=== PATIENT | male | born 1940 | race Caucasian/White ===

== ENCOUNTER 2016-06-04 10:22 | Emergency (ER) | payer OTHER, MEDICARE ==
[~2016-06-04] VITALS: Ht 172.7 cm; Wt 83.9 kg
[2016-06-04 10:29] VITALS: BP 121/68
--- NOTE | 2016-06-04 11:41 | NUR ---
PT TO BED 3
--- NOTE | 2016-06-04 11:45 | NUR ---
75M BIB SELF C/O ABDOMINAL PAIN X 2 WEEKS & COUGH X 3 WEEKS; DENIES V/D; SKIN IS PINK/WARM/DRY; AAOX4 WITH EVEN AND STEADY GAIT; LUNGS CLEAR BL; HR EVEN AND REGULAR; PT DENIES ANY FEVER, CP, SOB, OR COUGH AT THIS TIME; PATIENT STATES PAIN OF 6/10 AT THIS TIME; VSS; PATIENT POSITIONED FOR COMFORT; HOB ELEVATED; BEDRAILS UP X2; BED DOWN. ER MD MADE AWARE OF PT STATUS.
--- NOTE | 2016-06-04 12:04 | NUR ---
AAO PT BEING ASSESS BY DR BURT AT BEDSIDE
[2016-06-04] MEDS ORDERED: ONDANSETRON 4 MG/2 ML VIAL IVP ONE (12:05)
[2016-06-04] MEDS ORDERED: FAMOTIDINE 20 MG/2 ML VIAL IVP ONE (12:05)
[2016-06-04] MEDS ORDERED: NACL 0.9% 1,000 ML IV SCH (12:05)
--- NOTE | 2016-06-04 12:35 | NUR ---
PT TAKEN TO CT BY ROSCOE CHAVEZ VIA WHEEL CHAIR
[2016-06-04 14:25] VITALS: BP 132/72
--- NOTE | 2016-06-04 14:25 | NUR ---
Patient discharged with v/s stable. Written and verbal after care instructions given and explained. Patient alert, oriented and verbalized understanding of instructions. Ambulatory with steady gait. All questions addressed prior to discharge. ID band removed. Patient advised to follow up with PMD. Rx of given. PRANITIDINE, TYLENOL atient educated on indication of medication including possible reaction and side effects. Opportunity to ask questions provided and answered.
== END 2016-06-04 14:25 | disposition home or self-care (01) ==
LOC: MED 10:22
DX: R10.13 Epigastric pain (principal); K40.90 Unilateral inguinal hernia, without obstruction or gangrene, not specified as recurrent; K57.90 Diverticulosis of intestine, part unspecified, without perforation or abscess without bleeding; R19.7 Diarrhea, unspecified; R11.2 Nausea with vomiting, unspecified; E11.9 Type 2 diabetes mellitus without complications; I10 Essential (primary) hypertension
CPT/HCPCS: 36415; 74176; 80053; 81001; 82150; 83690; 85025; 87086; 96374; 96375; 99285; J2405; J3490; J7030

== ENCOUNTER 2016-06-22 22:24 | Emergency (ER) | payer OTHER, MEDICARE ==
[~2016-06-22] VITALS: Ht 172.7 cm; Wt 83.9 kg
[2016-06-22 22:35] VITALS: BP 159/115
--- NOTE | 2016-06-22 23:00 | NUR ---
PATIENT PRESENTS TO ED WITH ABD PAIN . PT STATES N/V/ AND NO DIARRHEA. SKIN IS PINK/WARM/DRY; AAOX4 WITH EVEN AND STEADY GAIT; LUNGS CLEAR BL; HR EVEN AND REGULAR; PT DENIES ANY FEVER, CP, SOB, OR COUGH AT THIS TIME; PATIENT STATES PAIN OF 8/10 AT THIS TIME; VSS; PATIENT POSITIONED FOR COMFORT; HOB ELEVATED; BEDRAILS UP X2; BED DOWN. ER MD MADE AWARE OF PT STATUS.
--- NOTE | 2016-06-22 23:04 | NUR ---
TO ER BED 8
[2016-06-22] MEDS ORDERED: PANTOPRAZOLE 40 MG INJ VIAL IVP ONE (23:25)
[2016-06-22] MEDS ORDERED: KETOROLAC 30 MG/ML VIAL IVP ONE (23:25)
[2016-06-22] MEDS ORDERED: ONDANSETRON 4 MG/2 ML VIAL IVP ONE (23:25)
[2016-06-22] MEDS ORDERED: NACL 0.9% 500 ML IV ONE (23:25)
--- NOTE | 2016-06-22 23:40 | NUR ---
LABS DONE AT BEDSIDE
--- NOTE | 2016-06-22 23:40 | NUR ---
PT TAKEN TO CT
[2016-06-23] MEDS ORDERED: LIDOCAINE VISCOUS 2% 20 ML UDC PO ONE (01:10)
[2016-06-23 01:44] VITALS: BP 162/94
--- NOTE | 2016-06-23 01:44 | NUR ---
Patient discharged with v/s stable. Written and verbal after care instructions given and explained. Patient alert, oriented and verbalized understanding of instructions. Ambulatory with steady gait. All questions addressed prior to discharge. ID band removed. Patient advised to follow up with PMD. Rx of MIRALAX, PROTONIX, MAGNESIUM CITRATE given. Patient educated on indication of medication including possible reaction and side effects. Opportunity to ask questions provided and answered.
== END 2016-06-23 01:44 | disposition home or self-care (01) ==
LOC: MED 22:24
DX: K59.00 Constipation, unspecified (principal); E11.9 Type 2 diabetes mellitus without complications; F41.9 Anxiety disorder, unspecified; I10 Essential (primary) hypertension
CPT/HCPCS: 36415; 74176; 80053; 85025; 85610; 85730; 96361; 96374; 96375; 99285; C9113; J1885; J2405; J7030

== ENCOUNTER 2016-07-31 16:10 | Emergency (ER) | payer MEDICARE, OTHER ==
--- NOTE | 2016-07-31 16:20 | NUR ---
CALLED PT FOR TRIAGE ASSESSMENT, NO ANSWER.
--- NOTE | 2016-07-31 16:37 | NUR ---
PATIENT CALLED FROM LOBBY NO ANSWER FOR TRIAGE.
--- NOTE | 2016-07-31 17:34 | NUR ---
PATIENT LWBS NO ANSWER.
== END 2016-07-31 17:35 | disposition left against medical advice (07) ==
LOC: MED 16:10
DX: R10.9 Unspecified abdominal pain (principal); Z53.21 Procedure and treatment not carried out due to patient leaving prior to being seen by health care provider

== ENCOUNTER 2016-08-22 16:35 | Emergency (ER) | payer MEDICARE ==
[~2016-08-22] VITALS: Ht 172.7 cm; Wt 81.6 kg
[2016-08-22 16:37] VITALS: BP 148/77
[2016-08-22] MEDS ORDERED: NACL 0.9% 1,000 ML IV SCH (17:34)
[2016-08-22] MEDS ORDERED: FAMOTIDINE 20 MG/2 ML VIAL IVP ONE (17:35)
[2016-08-22] MEDS ORDERED: ONDANSETRON 4 MG/2 ML VIAL IVP ONE (17:35)
[2016-08-22] MEDS ORDERED: LIDOCAINE VISCOUS 2% 20 ML UDC PO ONE (17:45)
[2016-08-22] MEDS ORDERED: ALUMINUM HYD/MAG/SIMETHICONE 30 ML UDC PO ONE (17:45)
[2016-08-22] MEDS ORDERED: BELLADONNA/PHENOBARBITAL 1 TAB PO ONE (17:45)
[2016-08-22] MEDS ORDERED: DICYCLOMINE HCL LIQUID 20 MG, ALUMINUM HYD/MAG/SIMETHICONE 30 ML, LIDOCAINE VISCOUS 2% ... PO ONE (17:50)
--- NOTE | 2016-08-22 17:50 | NUR ---
PT AMBULATED TO ER BED #4.
--- NOTE | 2016-08-22 17:52 | NUR ---
75/M PRESENT TO ER C/O ABDOMINAL PAIN x 2 WEEKS. PAIN 10/10 ACHING NON RADIATING. PT HAS NAUSEA BUT DENIES V/D. AAOx 4, PERRLA, BREATHING EVEN AND UNLABORED.
--- NOTE | 2016-08-22 18:10 | NUR ---
Patient being evaluated by physician at bedside.
--- NOTE | 2016-08-22 19:08 | NUR ---
Patient discharged with v/s stable. Written and verbal after care instructions given and explained. Patient alert, oriented and verbalized understanding of instructions. Ambulatory with steady gait. All questions addressed prior to discharge. ID band removed. Patient advised to follow up with PMD. Rx of guaitussin ac 100mg/10mg-5ml and elixir 5ml given. Patient educated on indication of medication including possible reaction and side effects. Opportunity to ask questions provided and answered.
[2016-08-22 19:12] VITALS: BP 141/80
== END 2016-08-22 19:12 | disposition home or self-care (01) ==
LOC: MED 16:37
DX: K21.9 Gastro-esophageal reflux disease without esophagitis (principal); E11.9 Type 2 diabetes mellitus without complications; F41.9 Anxiety disorder, unspecified; I10 Essential (primary) hypertension
CPT/HCPCS: 36415; 71010; 80053; 82150; 82553; 83690; 83880; 84484; 85025; 85610; 85730; 93005; 96361; 96374; 96375; 99285; J2405; J3490; Q0092

== ENCOUNTER 2016-10-14 06:25 | Emergency (ER) | payer MEDICARE ==
[~2016-10-14] VITALS: Ht 172.7 cm; Wt 77.1 kg
[2016-10-14 06:34] VITALS: BP 157/92
--- NOTE | 2016-10-14 07:40 | NUR ---
Pt taken to bed 6.
--- NOTE | 2016-10-14 07:50 | NUR ---
76/M c/o abdominal pain for the past couple of days and also c/o "I can't breathe." Pt c/o abdominal pain, generalized, 10/03 "two inches above my belly button." Denies N/V/D. Pt states "I had a bowel movement this morning. It was green." Denies s/s of UTI. AOX4, excessive speech. Pt also noted to be anxious and restless. Abdomen soft, non tender, active bowel sounds x4 quadrants. Lungs clear bilterally. Pt placed on monitoring tech, pulse oximetry and blood pressure monitoring. VSS.
--- NOTE | 2016-10-14 08:02 | NUR ---
Patient being evaluated by Dr. Moscoso at bedside.
[2016-10-14] MEDS ORDERED: KETOROLAC 60 MG/2 ML VIAL IM ONE (08:05)
[2016-10-14] MEDS ORDERED: DICYCLOMINE HCL LIQUID 20 MG, ALUMINUM HYD/MAG/SIMETHICONE 30 ML, LIDOCAINE VISCOUS 2% ... PO ONE ×3 (08:05)
--- NOTE | 2016-10-14 08:20 | NUR ---
PATIENT ELOPED FROM FACILITY. DISCHARGE INSTRUCTIONS NOT GIVEN TO PATIENT. DR. VICENTE NOTIFIED.
--- NOTE | 2016-10-14 08:23 | NUR ---
Pt left facility without discharge instructions. Dr. Danis dsouza.
[2016-10-14 08:24] VITALS: BP 154/83
== END 2016-10-14 08:23 | disposition home or self-care (01) ==
LOC: MED 06:25
DX: R10.13 Epigastric pain (principal); E11.9 Type 2 diabetes mellitus without complications; F41.9 Anxiety disorder, unspecified; I10 Essential (primary) hypertension
CPT/HCPCS: 81002; 96372; 99283; J1885

== ENCOUNTER 2016-11-09 13:46 | Emergency (ER) | payer MEDICARE, MEDICAID ==
[~2016-11-09] VITALS: Ht 172.7 cm; Wt 76.0 kg
[2016-11-09 13:51] VITALS: BP 131/77
--- NOTE | 2016-11-09 15:32 | NUR ---
PATIENT LEFT WITHOUT BEING SEEN BY DR. VICENTE. NO FURTHER CARE PROVIDED FOR PATIENT.
== END 2016-11-09 15:32 | disposition left against medical advice (07) ==
LOC: MED 13:46
DX: R10.9 Unspecified abdominal pain (principal); Z53.21 Procedure and treatment not carried out due to patient leaving prior to being seen by health care provider

== ENCOUNTER 2016-11-27 16:15 | Emergency (ER) | payer MEDICARE, MEDICAID ==
[~2016-11-27] VITALS: Ht 172.7 cm; Wt 76.2 kg
[2016-11-27 16:38] VITALS: BP 132/51
--- NOTE | 2016-11-27 16:49 | NUR ---
Patient ambulated to bed 7. RN evaluating patient at bedside.
--- NOTE | 2016-11-27 16:55 | NUR ---
PATIENT PRESENTS TO ED WITH C/O ABDOMINAL PAIN WORSE TODAY 8/10 WITH NAUSEA; DENIES V/D; HAS CHRONIC ABDOMINAL PAIN X 7 YEARSHX OF IBS, GERD, HTN, ANXIETY, ;HYPERCHOLESTEROLEMIA;RX OF PROTONIX, CARAFATE, TRAZADONE, LORAZEPAM, BENTTYL, SYMBASTIN .SKIN IS PINK/WARM/DRY; AAOX4 WITH EVEN AND STEADY GAIT; LUNGS CLEAR BL; HR EVEN AND REGULAR; PT DENIES ANY FEVER, CP, SOB, OR COUGH AT THIS TIME; PATIENT STATES PAIN OF 7/10 AT THIS TIME;PATIENT POSITIONED FOR COMFORT; HOB ELEVATED; BEDRAILS UP X2; BED DOWN. ER MD MADE AWARE OF PT STATUS.
--- NOTE | 2016-11-27 16:59 | NUR ---
Dr. Menchaca evaluating patient at bedside.
[2016-11-27] MEDS ORDERED: HYDROmorphone 1 MG/ML AMP IVP ONE (17:15)
[2016-11-27] MEDS ORDERED: LIDOCAINE VISCOUS 2% 20 ML UDC PO ONE (17:25)
[2016-11-27] MEDS ORDERED: DICYCLOMINE HCL LIQUID 10 MG/5 ML UDC PO ONE (17:25)
[2016-11-27] MEDS ORDERED: ALUMINUM HYD/MAG/SIMETHICONE 30 ML UDC PO ONE (17:25)
--- NOTE | 2016-11-27 17:34 | NUR ---
PT RESTING ON BED;NO ACUTE DISTRESS NOTED;WILL CONTINUE TO MONITOR PT.
--- NOTE | 2016-11-27 18:01 | NUR ---
PT RESTING ON BED;PT VERBALIZES DECRAESED OF PAIN FROM 8/10 TO 5/10;NO FACIAL GRIMMACING/MOANING/GUARDING NOTED;WILL CONTINUE TO MONITOR PT.
[2016-11-27 18:12] VITALS: BP 133/71
--- NOTE | 2016-11-27 18:12 | NUR ---
Patient discharged with v/s stable. Written and verbal after care instructions given and explained. Patient alert, oriented and verbalized understanding of instructions. Ambulatory with steady gait. All questions addressed prior to discharge. ID band removed. Patient advised to follow up with PMD. Rx of LINZESS given. Patient educated on indication of medication including possible reaction and side effects. Opportunity to ask questions provided and answered.
== END 2016-11-27 18:12 | disposition home or self-care (01) ==
LOC: MED 16:15
DX: K58.9 Irritable bowel syndrome, unspecified (principal); K21.9 Gastro-esophageal reflux disease without esophagitis; I10 Essential (primary) hypertension; F41.0 Panic disorder [episodic paroxysmal anxiety]
CPT/HCPCS: 96374; 99284; J1170

== ENCOUNTER 2016-12-03 17:54 | Emergency (ER) | payer MEDICARE, MEDICAID ==
[~2016-12-03] VITALS: Ht 172.7 cm; Wt 77.2 kg
[2016-12-03 18:01] VITALS: BP 143/87
--- NOTE | 2016-12-03 18:25 | NUR ---
Patient ambulated to bed 6. RN evaluating patient at bedside.
--- NOTE | 2016-12-03 18:31 | NUR ---
Dr. Sanchez evaluating patient at bedside.
--- NOTE | 2016-12-03 18:35 | NUR ---
PATIENT PRESENTS TO ED WITH 76M BIB SELF C/O MID-ABDOMINAL PAIN X 7 YEARS, WORSENING IN 3 WEEKS. HX: DIABETIC RX: PT DENIES . PT STATES . DENIES N/V/D; SKIN IS PINK/WARM/DRY; AAOX4 WITH EVEN AND STEADY GAIT; LUNGS CLEAR BL; HR EVEN AND REGULAR; PT DENIES ANY FEVER, CP, SOB, OR COUGH AT THIS TIME; PATIENT STATES PAIN OF 8/10 AT THIS TIME; VSS; PATIENT POSITIONED FOR COMFORT; HOB ELEVATED; BEDRAILS UP X2; BED DOWN. ER MD MADE AWARE OF PT STATUS.
[2016-12-03] MEDS ORDERED: DICYCLOMINE HCL LIQUID 20 MG, ALUMINUM HYD/MAG/SIMETHICONE 30 ML, LIDOCAINE VISCOUS 2% ... PO ONE ×3 (18:40)
[2016-12-03] MEDS ORDERED: KETOROLAC 30 MG/ML VIAL IM ONE (18:55)
--- NOTE | 2016-12-03 19:13 | NUR ---
Patient discharged with v/s stable. Written and verbal after care instructions given and explained. Patient verbalized understanding. Ambulatory with steady gait. All questions addressed prior to discharge. Advised to follow up with PMD.
[2016-12-03 19:15] VITALS: BP 144/84
== END 2016-12-03 19:13 | disposition home or self-care (01) ==
LOC: MED 17:54
DX: K21.9 Gastro-esophageal reflux disease without esophagitis (principal); M13.88 Other specified arthritis, other site; I10 Essential (primary) hypertension
CPT/HCPCS: 82948; 96372; 99283; J1885

== ENCOUNTER 2016-12-11 16:21 | Emergency (ER) | payer MEDICARE, MEDICAID ==
[~2016-12-11] VITALS: Ht 172.7 cm; Wt 77.1 kg
[2016-12-11 16:33] VITALS: BP 141/86
[2016-12-11] MEDS ORDERED: ONDANSETRON 4 MG ODT PO ONE (16:45)
[2016-12-11] MEDS ORDERED: LIDOCAINE VISCOUS 2% 20 ML UDC PO ONE (16:45)
[2016-12-11] MEDS ORDERED: ALUMINUM HYD/MAG/SIMETHICONE 30 ML UDC PO ONE (16:45)
[2016-12-11] MEDS ORDERED: MORPHINE SULFATE 4 MG/ML SYR IM ONE (16:45)
[2016-12-11] MEDS ORDERED: DICYCLOMINE HCL LIQUID 10 MG/5 ML UDC PO ONE (16:45)
[2016-12-11 17:16] LABS: BASOPHILS # (AUTO) 0.3 K/uL (0.00-0.22); EOSINOPHILS # (AUTO) 0.3 K/uL (0-0.4); HEMATOCRIT 43.5 % (36-52); HEMOGLOBIN 14.5 g/dL (12.0-18.0); LYMPHOCYTES # (AUTO) 2.4 K/uL (2.0-11.5); MEAN CORPUSCULAR HEMOGLOBIN 31 pg (27-31); MEAN CORPUSCULAR HGB CONC 33 g/dL (33-37); MEAN CORPUSCULAR VOLUME 93 fL (80-94); MONOCYTES # (AUTO) 0.5 K/uL (0.8-1.0); NEUTROPHILS # (AUTO) 3.4 K/uL (1.8-7.7); PLATELET COUNT (AUTO) 338 K/uL (140-450); WHITE BLOOD COUNT (AUTO) 6.9 K/uL (4.8-10.8)
[2016-12-11 17:27] LABS: ANION GAP 9.1 (8-16); CARBON DIOXIDE 29.2 mmol/L (21-32); CHLORIDE 105 mmol/L (98-107); CREATININE 1.2 mg/dL (0.7-1.3); GLUCOSE 130 mg/dL (74-106); POTASSIUM 4.3 mmol/L (3.5-5.1); SODIUM SERUM 139 mmol/L (136-145); UREA NITROGEN, BLOOD 8 mg/dL (7-18)
[2016-12-11 17:32] LABS: ALBUMIN 3.5 g/dL (3.4-5.0); ASPARTATE AMINOTRANSFERASE 15 U/L (15-37); LIPASE 169 U/L (73-393); TOTAL BILIRUBIN 0.2 mg/dL (0.0-1.0)
[2016-12-11 17:58] VITALS: BP 147/91
== END 2016-12-11 17:58 | disposition home or self-care (01) ==
LOC: MED 16:21
DX: K58.8 Other irritable bowel syndrome (principal); K21.9 Gastro-esophageal reflux disease without esophagitis; I10 Essential (primary) hypertension
CPT/HCPCS: 36415; 80053; 83690; 85025; 96372; 99284; J2270; S0119

== ENCOUNTER 2016-12-18 14:15 | Emergency (ER) | payer MEDICARE, MEDICAID ==
--- NOTE | 2016-12-18 15:00 | NUR ---
PATIENT LEFT WITHOUT BEING SEEN BY DR. HERNANDEZ. NO FURTHER CARE PROVIDED FOR PATIENT.
== END 2016-12-18 15:00 | disposition left against medical advice (07) ==
LOC: MED 14:15
DX: Z53.21 Procedure and treatment not carried out due to patient leaving prior to being seen by health care provider (principal)

== ENCOUNTER 2017-02-26 18:52 | Emergency (ER) | payer MEDICARE, MEDICAID ==
[~2017-02-26] VITALS: Ht 172.7 cm; Wt 79.4 kg
--- NOTE | 2017-02-26 18:52 | NUR ---
Patient was BIBA and taken to bed 08 via gurney per EMS.
[2017-02-26 18:54] VITALS: BP 201/117
[2017-02-26] MEDS ORDERED: ACET-2869 PO (19:01)
[2017-02-26] MEDS ORDERED: MAGN400S60 PO (19:01)
[2017-02-26] MEDS ORDERED: PANT40EC PO (19:01)
[2017-02-26] MEDS ORDERED: SIMV40TA1 PO (19:01)
[2017-02-26] MEDS ORDERED: OMEP20TC12 PO (19:01)
--- NOTE | 2017-02-26 19:07 | NUR ---
PATIENT IS A 76 YO MALE BIB EMS FROM HOME FOR ABDOMINAL PAIN, NAUSEA AND BLOATING. AWAKE AND ALERT N ACUTE DISTRESS. TO BED 8 PENDING MD EXAM.
[2017-02-26] MEDS ORDERED: ONDANSETRON 4 MG/2 ML VIAL IVP ONE (19:30)
[2017-02-26] MEDS ORDERED: NACL 0.9% 1,000 ML IV ONE (19:30)
[2017-02-26] MEDS ORDERED: DICYCLOMINE HCL LIQUID 20 MG, ALUMINUM HYD/MAG/SIMETHICONE 30 ML, LIDOCAINE VISCOUS 2% ... PO ONE ×3 (19:30)
[2017-02-26 20:03] LABS: BASOPHILS # (AUTO) 0.3 K/uL (0.00-0.22); BASOPHILS % (AUTO) 3.5 % (0.0-2.0); EOSINOPHILS # (AUTO) 0.3 K/uL (0-0.4); EOSINOPHILS % (AUTO) 3.2 % (0.0-4.0); HEMATOCRIT 49.7 % (36-52); HEMOGLOBIN 16.2 g/dL (12.0-18.0); LYMPHOCYTES # (AUTO) 1.7 K/uL (2.0-11.5); LYMPHOCYTES % (AUTO) 19.3 % (20.5-51.1); MEAN CORPUSCULAR HEMOGLOBIN 29 pg (27-31); MEAN CORPUSCULAR HGB CONC 33 g/dL (33-37); MEAN CORPUSCULAR VOLUME 89 fL (80-94); MONOCYTES # (AUTO) 0.7 K/uL (0.8-1.0); MONOCYTES % (AUTO) 8.2 % (1.7-9.3); NEUTROPHILS # (AUTO) 5.8 K/uL (1.8-7.7); NEUTROPHILS % (AUTO) 65.8 % (42.2-75.2); PLATELET COUNT (AUTO) 408 K/uL (140-450); RED CELL DISTRIBUTION WIDTH 13.1 % (11.6-13.7); WHITE BLOOD COUNT (AUTO) 8.8 K/uL (4.8-10.8)
[2017-02-26 20:14] LABS: ANION GAP 11.8 (8-16); CARBON DIOXIDE 28.3 mmol/L (21-32); CHLORIDE 101 mmol/L (98-107); CREATININE 1.2 mg/dL (0.7-1.3); GLUCOSE 124 mg/dL (74-106); POTASSIUM 4.1 mmol/L (3.5-5.1); SODIUM SERUM 137 mmol/L (136-145); UREA NITROGEN, BLOOD 10 mg/dL (7-18)
[2017-02-26 20:18] LABS: ASPARTATE AMINOTRANSFERASE 23 U/L (15-37); TOTAL BILIRUBIN 0.3 mg/dL (0.0-1.0)
[2017-02-26 21:00] VITALS: BP 136/72
--- NOTE | 2017-02-26 21:00 | NUR ---
Patient discharged with v/s stable. Written and verbal after care instructions given and explained. Patient alert, oriented and verbalized understanding of instructions. Ambulatory with steady gait. All questions addressed prior to discharge. ID band removed. Patient advised to follow up with PMD. Rx of ZOFRAN given. Patient educated on indication of medication including possible reaction and side effects. Opportunity to ask questions provided and answered. IV removed, catheter intact and site benign. Applied folded 4x4 gauze and tape to stop bleeding.
== END 2017-02-26 21:00 | disposition home or self-care (01) ==
LOC: MED 18:52
DX: K21.9 Gastro-esophageal reflux disease without esophagitis (principal); R11.2 Nausea with vomiting, unspecified; R21 Rash and other nonspecific skin eruption; I10 Essential (primary) hypertension; F41.9 Anxiety disorder, unspecified; F32.9 Major depressive disorder, single episode, unspecified; Z79.899 Other long term (current) drug therapy
CPT/HCPCS: 36415; 80053; 83690; 85025; 96361; 96374; 99284; J2405; J7030

== ENCOUNTER 2017-11-16 16:09 | Emergency (ER) | payer MEDICARE, MEDICAID ==
[~2017-11-16] VITALS: Ht 170.2 cm; Wt 93.0 kg
[~2017-11-16 16:09] MED LIST: ACET-2869 PO; MAGN400S60 PO; OMEP20TC12 PO; PANT40EC PO; SIMV40TA1 PO
--- NOTE | 2017-11-16 16:12 | NUR ---
PT SOLO MONTANEZ, CURRENTLY AWAITING BED
--- NOTE | 2017-11-16 16:13 | NUR ---
PT TAKEN BY [facility] TO BED 9
[2017-11-16 16:21] VITALS: BP 180/103
--- NOTE | 2017-11-16 16:27 | NUR ---
DR SHEPPARD EVALUATING AT BEDSIDE
[2017-11-16] MEDS ORDERED: NACL 0.9% 1,000 ML IV SCH (16:29)
[2017-11-16] MEDS ORDERED: MORPHINE SULFATE 4 MG/ML SYR IVP ONE (16:30)
[2017-11-16] MEDS ORDERED: FAMOTIDINE 20 MG/2 ML VIAL IVP ONE (16:30)
[2017-11-16] MEDS ORDERED: ONDANSETRON 4 MG/2 ML VIAL IVP ONE (16:30)
[2017-11-16] MEDS ORDERED: KETOROLAC 30 MG/ML VIAL IVP ONE (16:30)
--- NOTE | 2017-11-16 16:46 | NUR ---
PT RETURNED FROM CT
[2017-11-16 17:01] LABS: BASOPHILS # (AUTO) 0.1 K/uL (0.00-0.22); EOSINOPHILS # (AUTO) 0.3 K/uL (0-0.4); EOSINOPHILS % (AUTO) 2.7 % (0.0-4.0); HEMATOCRIT 49.3 % (36-52); HEMOGLOBIN 16.3 g/dL (12.0-18.0); LYMPHOCYTES # (AUTO) 1.9 K/uL (2.0-11.5); LYMPHOCYTES % (AUTO) 16.2 % (20.5-51.1); MEAN CORPUSCULAR HEMOGLOBIN 29 pg (27-31); MEAN CORPUSCULAR HGB CONC 33 g/dL (33-37); MEAN CORPUSCULAR VOLUME 89.1 fL (80-94); MONOCYTES # (AUTO) 0.7 K/uL (0.8-1.0); MONOCYTES % (AUTO) 6.2 % (1.7-9.3); NEUTROPHILS # (AUTO) 8.8 K/uL (1.8-7.7); NEUTROPHILS % (AUTO) 73.9 % (42.2-75.2); PLATELET COUNT (AUTO) 413 K/uL (140-450); RED BLOOD CELL COUNT(AUTO) 5.53 MIL/uL (4.20-6.10); WHITE BLOOD COUNT (AUTO) 11.9 K/uL (4.8-10.8)
[2017-11-16 17:02] LABS: APPEARANCE,URINE CLEAR (CLEAR); BILIRUBIN,URINE NEGATIVE (NEGATIVE); BLOOD, URINE NEGATIVE (NEGATIVE); COLOR,URINE YELLOW (YELLOW); LEUKOCYTE ESTERASE ,URINE NEGATIVE (NEGATIVE); NITRITE, URINE NEGATIVE (NEGATIVE); UGLUCOSE NEGATIVE (NEGATIVE)
[2017-11-16 17:09] LABS: BARBITURATE, URINE NEG. ng/ml (NEG <=200); BENZODIAZEPINE, URINE NEG. ng/mL (NEG <=200); CANNABINOID, URINE NEG. ng/mL (NEG <=50); COCAINE, URINE NEG. ng/mL (NEG <=300); OPIATE, URINE NEG. ng/mL (NEG <=2000); PHENCYCLIDINE SCREEN,URINE NEG. ng/mL (NEG <=25)
[2017-11-16 17:16] LABS: ALBUMIN 4.3 g/dL (3.4-5.0); AMYLASE 44 U/L (25-115); ANION GAP 13.2 (8-16); ASPARTATE AMINOTRANSFERASE 24 U/L (15-37); CARBON DIOXIDE 27.7 mmol/L (21-32); CHLORIDE 95 mmol/L (98-107); CREATININE 1.1 mg/dL (0.7-1.3); GLUCOSE 147 mg/dL (74-106); LIPASE 176 U/L (73-393); POTASSIUM 4.9 mmol/L (3.5-5.1); SODIUM SERUM 131 mmol/L (136-145); TOTAL BILIRUBIN 0.4 mg/dL (0.0-1.0); UREA NITROGEN, BLOOD 13 mg/dL (7-18)
--- NOTE | 2017-11-16 17:30 | NUR ---
PT. RESTING IN BED, RR EVEN AND UNLABORED. VSS. WILL CONTINUE TO MONITOR.
[2017-11-16] MEDS ORDERED: DICYCLOMINE HCL LIQUID 20 MG, ALUMINUM HYD/MAG/SIMETHICONE 30 ML, LIDOCAINE VISCOUS 2% ... PO ONE ×3 (17:45)
--- NOTE | 2017-11-16 18:20 | NUR ---
PT. SPOKE TO SON PT STATES " MY SON SAID HE WAS PICKING ME UP". ER NOTIFIED
[2017-11-16 18:27] VITALS: BP 171/79
--- NOTE | 2017-11-16 18:27 | NUR ---
Patient discharged with v/s stable. Written and verbal after care instructions given and explained. Patient alert, oriented and verbalized understanding of instructions. Ambulatory with steady gait. All questions addressed prior to discharge. ID band removed. Patient advised to follow up with PMD. Rx of MOTRIN 600MG, MAALOX, PEPCID 20MG, ZOFRAN ODT given. Patient educated on indication of medication including possible reaction and side effects. Opportunity to ask questions provided and answered.
== END 2017-11-16 18:27 | disposition home or self-care (01) ==
LOC: MED 16:09
DX: R10.13 Epigastric pain (principal); R11.10 Vomiting, unspecified; R19.7 Diarrhea, unspecified; E11.9 Type 2 diabetes mellitus without complications; K21.9 Gastro-esophageal reflux disease without esophagitis; I10 Essential (primary) hypertension; Z79.899 Other long term (current) drug therapy
CPT/HCPCS: 36415; 74176; 80053; 80305; 81003; 82150; 83690; 85025; 96361; 96374; 96375; 99285; G0482; J1885; J2405; J3490

== ENCOUNTER 2021-01-07 16:57 | Emergency (ER) | payer MEDICARE, MEDICAID ==
[~2021-01-07] VITALS: Ht 172.7 cm; Wt 83.5 kg
[~2021-01-07 16:57] MED LIST changes: -ACET-2869 PO; +HYDR-5122 PO; +OMEP-278 PO; -OMEP20TC12 PO
[2021-01-07 17:04] VITALS: BP 148/86
--- NOTE | 2021-01-07 17:06 | NUR ---
C/O GENERALIZED RASH X 7 YEARS. BLOOD SUGAR 310 AT THISTIME. PMH: DM, HTN
[2021-01-07] MEDS ORDERED: predniSONE 20 MG TAB PO ONE (17:35)
[2021-01-07] MEDS ORDERED: NAPROXEN 500 MG TAB PO SCH (17:35)
[2021-01-07] MEDS ORDERED: BACI1PAC6 TP (17:45)
[2021-01-07] MEDS ORDERED: DIPH25TA53 PO (17:45)
[2021-01-07] MEDS ORDERED: LORA10TA19 PO (17:45)
[2021-01-07 17:59] VITALS: BP 148/86
--- NOTE | 2021-01-07 18:00 | NUR ---
Patient discharged with v/s stable. Written and verbal after care instructions given and explained. Patient alert, oriented and verbalized understanding of instructions. Ambulatory with steady gait. All questions addressed prior to discharge. ID band removed. Patient advised to follow up with PMD. Rx of BENADRLY, LORATIDINE, BACITRACIN given. Patient educated on indication of medication including possible reaction and side effects. Opportunity to ask questions provided and answered.
== END 2021-01-07 18:00 | disposition home or self-care (01) ==
LOC: MED 16:57
DX: L30.9 Dermatitis, unspecified (principal); M54.9 Dorsalgia, unspecified; E11.9 Type 2 diabetes mellitus without complications; I10 Essential (primary) hypertension; K21.9 Gastro-esophageal reflux disease without esophagitis; Z79.899 Other long term (current) drug therapy
CPT/HCPCS: 99283; J7512